=== PATIENT | male | born 1980 | race Caucasian/White ===

== ENCOUNTER 2017-12-30 09:34 | Day surgery (SDC) | payer BC ==
[2017-12-29 13:21] VITALS: BMI 23.6
--- NOTE | 2017-12-30 07:32 | HP ---
History & Physical Update - History History: No Change - Physical Physical: No Change - Assessment Assessment: No Change - Plan Plan: No Change (Initial H&P is in patient's paper chart.)
[~2017-12-30 09:34] MED LIST: oxyCODONE HCL 10 MG SUSTAINED ACTING TABLET PO STA
[2017-12-30] MEDS ORDERED: methylPREDNISolone ACET (DEPO) 40 MG/1 ML VIAL ONE (10:25)
[2017-12-30] MEDS ORDERED: LIDOCAINE 1%/EPI 1:100000 (20 ML MULTI DOSE VIAL) ONE (10:25)
[2017-12-30] MEDS ORDERED: THROMBIN (BOVINE) 5,000 UNIT VIAL TP ONE ×2 (10:25→13:48)
[2017-12-30] MEDS ORDERED: DEXAMETHASONE SOD PHOSPHATE/PF 10 MG/ML SDV ONE (11:32)
[2017-12-30] MEDS ORDERED: BUPIVACAINE HCL/PF (5 MG/ML) 30 ML VIAL IJ ONE (11:33)
[2017-12-30] MEDS ORDERED: MIDAZOLAM HCL 2 MG/2 ML SINGLE DOSE VIAL ONE (11:33)
[2017-12-30] MEDS ORDERED: DEXAMETHASONE SOD PHOSPHATE 4 MG/1 ML VIAL ONE (12:43)
[2017-12-30] MEDS ORDERED: ONDANSETRON 4 MG/2 ML VIAL ONE (12:43)
[2017-12-30] MEDS ORDERED: LIDOCAINE 1%/EPI 1:100000 (50 ML MULTI DOSE VIAL) INF ONE (12:45)
[2017-12-30] MEDS ORDERED: GELATIN SPONGE,ABSORBABLE 1 GM PACKET TP ONE (13:48)
[2017-12-30] MEDS ORDERED: methylPREDNISolone ACET (DEPO) 40 MG/1 ML VIAL IM ONE (13:49)
--- NOTE | 2017-12-30 14:03 | OP ---
Operative Note - Note: Operative Date: 12/30/17 Pre-Operative Diagnosis: Spinal stenosis, L4/5 disc herniation, radiculopathy Operation: L4/5 laminectomy with discectomy Post-Operative Diagnosis: Same as Pre-op Surgeon: Mainor Florence [employer] Team Member: José Miguel Lovelace Anesthesiologist/RELATIONSHIP BANKER: Magaly Vizcarra (TLIP in holding) Anesthesia: Spinal Specimens Removed: L4/5 disc Estimated Blood Loss (mls): 30 Fluid Volume Replaced (mls): 900 Operative Report Dictated: Yes
[2017-12-30] MEDS ORDERED: ONDANSETRON 4 MG/2 ML VIAL IVPUSH PRN (14:05)
[2017-12-30] MEDS ORDERED: oxyCODONE HCL 5 MG TABLET PO PRN (14:05)
--- NOTE | 2017-12-30 14:05 | SURG ---
Surgery Mining Manager Note Mining Manager: José Miguel Lovelace PA-C Date of Service: 12/30/17 Diagnosis: Spinal stenosis, L4/5 disc herniation, radiculopathy Procedure: L/5 laminectomy with discectomy I was present for the entirety of the operative procedure. For further detail, please refer to operative report. Visit type - Case Type Case Type: Scheduled Admission - New patient This patient is new to me today: Yes Date on this admission: 12/30/17
[2017-12-30] MEDS ORDERED: LACTATED RINGERS SOLUTION 1,000 ML IV SCH (14:15)
--- NOTE | 2017-12-30 14:44 | OP ---
DATE OF OPERATION: 12/30/2017 PREOPERATIVE DIAGNOSES: 1. Spinal stenosis at L4-5. 2. Foot drop. POSTOPERATIVE DIAGNOSES: 1. Spinal stenosis at L4-5. 2. Foot drop. PROCEDURE PERFORMED: Laminectomy at L4-5. SURGEON: Mainor Florence MD ON AIR PERSONALITY: MAHAD Vaughn ESTIMATED BLOOD LOSS: 50 mL INTRAVENOUS FLUIDS: Per Anesthesia. ANESTHESIA: Spinal/TLIP. COMPLICATIONS: None. DISPOSITION: Patient brought to the PACU in stable condition. INDICATION FOR SURGERY: The patient is a 37-year-old gentleman who has been suffering from pain from his back down his left leg. He had also noticed to have foot drop. When I first examined him, he had significant weakness in his left foot with the inability to dorsiflex his ankle or his great toe. We had given him steroids to see if he had improvement. He came back a week later. He had no improvement. An MRI was completed which noted that he had L4-5 stenosis. I discussed with him the fact that he has a foot drop and recommended surgery at the time. Patient understood that he may not get full function back and patient understood the significant risks involved with the procedure and consented to surgery. DESCRIPTION OF PROCEDURE: Patient was brought to the operating room by the Anesthesia staff. After appropriate patient identification was performed, spinal anesthesia was given. TLIP block was given. Patient was placed prone onto the Sheng frame with all areas of bony prominences well padded at this time. Two needles were placed into his back to jakub off the L4-5 segment. X-ray was taken to confirm this as correct. Griffin were removed, and 10 mL of lidocaine with epinephrine were injected in his back at this time. His back was prepped and draped in a sterile manner. At this point, a timeout was completed. An incision was made from the top of L4 down to the bottom of L5. Dissection was carried down to the fascia. Fascia was split open at this time, and appropriate retractors were then placed in. A spinal needle was placed onto the L4 lamina. X-ray was taken to confirm this as correct. The needle was removed, and the microscope was brought in. At this point, the interspinous ligament at L4-5 was removed. Portions of the L4 and L5 spinous processes were removed. Portions of the lamina were removed. The flavum was identified, was removed. A complete decompression was performed such that by the end of the procedure the L5 nerve root appeared to be well decompressed. At this point, the nerve root was mobilized medially. A disk herniation was noted. It was removed. Multiple passes were made, and the disk herniation was removed. All bleeding was well controlled at this time. Steroid was placed over the nerve root. FloSeal was placed over that. The fascia was closed with a No. 1 Vicryl suture. Subcutaneous tissues were closed with 2-0 Vicryl suture. Skin was closed with 3-0 Monocryl suture. Dermabond was applied. Steri-Strips were applied. A sterile dressing was applied. Patient was placed supine on the OR bed and brought to the PACU in stable condition. Fausto LEYVA/[id number]
[2017-12-30 18:07] VITALS: TEMP 97.4
[2017-12-30 18:27] VITALS: BP 108/70; PULSE 98
--- NOTE | 2018-01-04 16:36 | PATH ---
Surgical Pathology Report Patient Name: KUN CASTRO Med. Rec. #: [id number] /Age/Gender: 1980 (Age: 37) / M Account: [id number] Location: [facility] AMBULATORY Taken: 12/30/2017 Received: 12/30/2017 Reported: 01/04/2018 Physicians: Mainor Florence M.D. Specimen(s) Received L4-5 DISC Clinical History Spinal stenosis Final Diagnosis L4-5 DISC, LAMINECTOMY: CARTILAGE WITH DEGENERATIVE CHANGES. Electronically Signed Courtney Cuevas M.D. Gross Description Received in formalin labeled "L4-5 disc," is a 4.5 x 2.5 x 0.4 cm aggregate of wiley enamorado fragments of fibrocartilaginous tissue. A banking representative portion is submitted in one cassette. 12/31/201712/31/2017
== END 2017-12-30 17:00 | disposition home or self-care (01) ==
LOC: FASU 09:34
PROVIDERS: ATTEND Orthopaedic Surgery Orthopaedic Surgery of the Spine
PROC: 01NB0ZZ Release Lumbar Nerve, Open Approach (ICD-10-PCS; principal; 2017-12-30 11:15)
DX: M48.061 Spinal stenosis, lumbar region without neurogenic claudication (principal); M21.372 Foot drop, left foot
CPT/HCPCS: 72100-TC-FY; 88304-TC